=== PATIENT | male | born 1960 | race Caucasian/White ===

== ENCOUNTER → 2021-05-31 10:16 | Outpatient (CLI) | payer OTHER, SELFPAY | PROVIDERS: Referring Provider Orthopaedic Surgery; Visit Provider Orthopaedic Surgery | DX: Z01.818 Encounter for other preprocedural examination (principal) | CPT/HCPCS: 93005; 93010 ==

== ENCOUNTER → 2021-08-14 10:12 | Outpatient (CLI) | payer OTHER, SELFPAY ==
[2021-08-14 14:09] LABS: COVID19 -Nasal RAPID Negative (Negative)
== END ==
PROVIDERS: Visit Provider Family Medicine Sleep Medicine
DX: Z20.822 Contact with and (suspected) exposure to COVID-19 (principal)
CPT/HCPCS: 87635; C9803

== ENCOUNTER 2021-08-15 06:22 | Day surgery (SDC) | payer OTHER, SELFPAY ==
[2021-08-07 12:42] VITALS: BMI 23.6
[2021-08-15] VITALS (16 sets, daily range): BP systolic 95–143; BP diastolic 50–82; PULSE 63–773; RESP 11–19; TEMP 35.6–37.1; O2SAT 95–100; BMI 23.6
--- NOTE | 2021-08-15 | DI.RAD.S_ITS ---
PROCEDURE: [id number] W PEL IF PERFORMED INDICATIONS: ANTERIOR LEFT HIP TECHNIQUE: 4 intraoperative fluoroscopic images of left hip(s). COMPARISON: None. FINDINGS: Intraoperative fluoroscopic images shows left total hip arthroplasty in progress. Left hip alignment is near anatomic. IMPRESSION: Fluoro guidance was provided intraoperatively for left total hip arthroplasty. Dictated by: Alex Franco M.D. on 08/15/2021 at 11:40 Approved by: Alex Franco M.D. on 08/15/2021 at 11:44
--- NOTE | 2021-08-15 06:00 | DI.RAD.S_ITS ---
PROCEDURE: XR HIP W PEL IF DONE LT 2V INDICATIONS: TERRY, anterior TECHNIQUE: AP pelvis with lateral view(s) of the left hip(s). COMPARISON: [facility], MANDY, [id number] W PEL IF PERFORMED, 08/15/2021, 10:20. [facility] [place], CR, XR PELVIS WITH LATERAL HIP LEFT, 05/24/2021, 11:38. FINDINGS: Bones: Left hip arthroplasty is been placed with prosthetic components in expected positions. Soft tissues: The visualized bowel gas pattern is normal. No suspicious soft tissue calcifications. Prostate seed implant. IMPRESSION: Placement of left hip arthroplasty with hardware in expected position. Dictated by: Dylan Barrett [facility] Interpreted: Dorothy Clark MD on 08/15/2021 at 17:07 Transcribed by: DONA on 08/15/2021 at 17:08 Approved by: Dorothy Clark M.D. on 08/15/2021 at 19:23
[2021-08-15] MEDS: VANCOMYCIN 1,000 MG/200 ML PIGGYBACK 200 MG IV (06:55)
[2021-08-15] MEDS: CELECOXIB 200 MG CAPSULE PO (07:08)
[2021-08-15] MEDS: PREGABALIN 75 MG CAPSULE PO (07:09)
[2021-08-15] MEDS: ACETAMINOPHEN 325 MG TABLET 975 MG PO (07:09)
[2021-08-15] MEDS: LACTATED RINGERS 1,000 ML 84 ML IV (07:11)
--- NOTE | 2021-08-15 07:35 | PM.PREOP ---
Pre-operative Note COVID-19 COVID-19 status: Negative Interval Note History & Physical reviewed/Exam performed by Physician: Yes Changes to H&P: No
--- NOTE | 2021-08-15 07:40 | P.OP_ITS ---
Operative Date/Time/Diagnoses Date of procedure: 08/15/21 Time of procedure: 08:00 Pre-op diagnosis: left hip AVN Post-op diagnosis: same Procedure & Clinicians Procedure: Left total hip anterior approach Same procedure as scheduled: Yes Indications: The patient has had progressively worsening left hip pain with radiographic changes consistent with arthritis. Non-operative management has failed and the patient has requested total hip replacement. The risks, benefits and alternatives to surgery were discussed with the patient prior to proceeding. Risks discussed included, but were not limited to, failure to relieve pain, leg length discrepancy, dislocation, stiffness, infection, nerve damage, deep venous thrombosis, pulmonary embolism, stroke, coma, heart attack, permanent paralysis and , as well as the potential need for eventual revision of the prosthetic. Surgeon: Malu Andrew Heating Operators Engineer: Daniel Bridges Anesthesia Type: General and Spinal Operative Notes Findings: Severe left hip avascular necrosis, adequate stability in bone Closure Type: primary Specimen(s): none sent Prosthetic devices, grafts, tissues, transplants, or devices: Andrew and nephew anthology size 7, R3 56 mm cup, neutral poly liner, 36+ 0 Oxinium head, two 6.5 mm screws Estimated Blood Loss (mL): 250 Blood products transfused: none Procedure in detail: The patient was brought to the operating room. Patient was carefully positioned in the supine position. Time-out was performed and antibiotics were given. Anesthesia was induced. He was positioned in the on the table in order to allow hyperextension of the hip. The left lower extremity was prepped and draped in a standard sterile fashion. An anterior left hip incision was made 1 fingerbreadth lateral to the anterior superior iliac spine and extended distally towards the greater trochanter. Dissection was carried out through skin and subcutaneous tissues. The skin and subcutaneous tissues were carefully injected with Lidocaine with epi. Superficial hemostasis was achieved. The fascia over the tensor fascia oumou was defined and incised with a knife. Two Allis clamps were used to grasp the fascia. Tensor fascia oumou was retracted laterally. A gelpi retractor was placed. Dissection was carried out down along the neck. The circumflex vessels were carefully identified and cauterized with the Aqua Mantis. There was good visualization of the femoral neck. A Cobra was placed superior to the neck and the gluteus fibers were carefully stripped from that superior aspect of the capsule. A 2nd retractor was placed along the inferior aspect of the neck. The rectus insertion along the capsule was partially released. A 3rd retractor that was then gently placed over the rim of the acetabulum under the rectus. Capsule was carefully incised and released from the intertrochanteric line circumferentially superior to the mid sagittal line and inferiorly to the mid sagittal line until the lesser trochanter was palpable. A tag stitch was placed both in the superior and inferior limb of the capsular insertion. Along the acetabulum capsule was also released up to the mid sagittal 12:00 position. A portion of the labrum was resected. A saw was used to perform an osteotomy at the level of the intertrochanteric line and the junction of the superior femoral neck leaving approximately 1 finger breath of residual inferior neck above the lesser trochanter. A 2nd cut was made along the femoral neck at the base of the head and a napkin ring of neck was removed. Corkscrew was placed in the femoral head and the head was removed without difficulty. Retractors were then repositioned around the acetabulum. Residual labrum was resected and additional osteophytes were removed. A reamer that was 4 mm below the templated size was placed by hand in the acetabulum and it was reamed to centralize the acetabulum. It was then reamed up to 2 under the templated size and fluoroscopy was brought in to confirm the position of the reaming and depth of reaming. I reamed 1 under the anticipated size and touched the rim with line to line reaming. A trial cup was placed and noted that it was appropriately sized and fluoroscopy confirmed position and depth. The component was open and inserted without difficulty fluoroscopic imaging was used to confirm that the cup had been adequately seated and was well positioned. It was further stabilized with 2 screws. Neutral poly liner was placed. The cup was tested and noted to be stable. Attention was then directed to the femur. The femur was gently hyperextended additional capsular release was performed as needed in order to allow adequate visualization of the proximal femur with elevation of the femur. Patient was placed in a hyperextended slightly adducted position with maximum external rotation. Box osteotome was used to check for any residual neck as well as sclerotic bone along the trochanter. Arabi pepper was placed in the femur. Additional broaching was performed. Canal finder was used to determine the alignment of the canal and position. Size 1 broach was placed. The canal was then appropriately broached up to the templated size as long as there was adequate stability of the broach and serial advancement of the broach without excessive impingement. Specific attention was directed at avoiding varus attempting to direct the distal aspect of the broach more anteriorly and avoiding excessive anteversion. Trial reduction showed acceptable range of motion, good stability, no posterior impingement, advent of leg length and appropriate lateral shuck. I also hyperflexed the hip and checked that there was no impingement anteriorly and there was good stability with flexion, adduction and internal rotation. Marcaine and Exparel were injected. The stem was placed without difficulty. Repeat trial reduction and x-ray showed acceptable overall position, length, and no evidence of the femoral fracture. Final head was placed. Wound was meticulously irrigated with normal saline. The hip was reduced and additional Exparel and Marcaine were injected. The capsule was closed with interrupted nonabsorbable sutures. The fascia of the tensor was closed with interrupted and running Vicryl. No drain was placed. Any tensor fascia oumou muscle that appeared to be contused or injured which was a minimal amount was carefully resected. Capsule around the tensor was injected with Exparel and Marcaine. The skin was closed with barbed stitches for the subcutaneous tissue and skin. We also used surgical glue. The wound was dressed sterilely. Brief Betadine soak was also used and was meticulously irrigated with normal saline. Patient was transferred to recovery room in satisfactory condition. Complications: none Post-operative Condition: stable Disposition: Acute Care Plan for aftercare: The patient will be maintained on a standard total hip replacement protocol with weight bearing as tolerated and anterior hip precautions. The patient will receive Aspirin and sequential compression devices for DVT prophylaxis. The patient will be discharged home when safe for the home environment.
[2021-08-15] MEDS: CEFAZOLIN 2 GM/20 ML SYRINGE IV ×2 (08:05→16:59)
[2021-08-15] MEDS: TRANEXAMIC ACID 1,000 MG VIAL 2000 MG INJ ×2 (08:10→10:35)
--- NOTE | 2021-08-15 08:40 | SUR.OPER ---
Supine on padded [place] table with bilateral legs secured in padded positioning boots and suspended in positioning spars, operative leg in traction per surgeon. Head on one pillow. Arm on non-operative side secured on padded armboard <90 degrees abduction. Arm on operative side padded and resting across chest then secured with tape over sheet. Padded perineal post in place per surgeon.
[2021-08-15] MEDS: SODIUM CHLORIDE IRRIG SOLUTION 250 ML, POVIDONE-IODINE SPONGE STICKS 1 APPLIC IRR (08:46)
[2021-08-15] MEDS: BUPIVACAINE LIPOSOME 266 MG/20 ML VIAL INJ (08:46)
[2021-08-15] MEDS: BUPIVACAINE 0.25% (PF) 60 ML, EPINEPHrine 0.3 MG INJ (08:46)
[2021-08-15] MEDS: LACTATED RINGERS 1,000 ML 125 ML IV ×2 (13:41→20:52)
[2021-08-15] MEDS: IBUPROFEN 400 MG TABLET PO ×3 (13:41→20:46)
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
[2021-08-15] MEDS: ACETAMINOPHEN 325 MG TABLET 650 MG PO ×2 (16:57→20:46)
--- NOTE | 2021-08-15 17:20 | PC.NURSE ---
Pt arrived to unit from PACU at 1150, A&Ox4, no c/o pain. Dressing to L hip CDI, no numbness and tingling, CMS intact bilaterally. VSS on RA, IV to R forearm SL. Pt oriented to room and call light, will continue to monitor.
[2021-08-15] MEDS: ASPIRIN EC 81 MG TABLET PO (20:45)
[2021-08-15] MEDS: ATORVASTATIN 20 MG TABLET 10 MG PO (20:46)
[2021-08-16] MEDS: CEFAZOLIN 2 GM/20 ML SYRINGE IV (01:16)
[2021-08-16] MEDS: IBUPROFEN 400 MG TABLET PO ×3 (01:17→09:50)
[2021-08-16 05:04] VITALS: BP 113/57; PULSE 65; RESP 19; TEMP 36.9; O2SAT 95
[2021-08-16 05:06] LABS: Hematocrit 31.7 % (41-53); Hemoglobin 10.7 g/dL (13.5-17.5)
[2021-08-16 07:00] VITALS: BP 111/61; PULSE 69; RESP 19; TEMP 36.6; O2SAT 97
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
--- NOTE | 2021-08-16 09:25 | PT-IP ANOTE ---
Attempted to see pt at 9:25, pt states no further needs and feels confident to go home this AM and continue outpatient therapy.
[2021-08-16] MEDS: DOCUSATE 100 MG CAPSULE PO (09:50)
[2021-08-16] MEDS: ASPIRIN EC 81 MG TABLET PO (09:50)
[2021-08-16] MEDS: ACETAMINOPHEN 325 MG TABLET 650 MG PO (09:50)
[2021-08-16] MEDS: OXYCODONE IR 5 MG TABLET PO (09:50)
--- NOTE | 2021-08-16 10:28 | PC.NURSE ---
I changed the patient's aquacel dressing because it was starting to peel off.
== END 2021-08-16 10:51 | disposition home or self-care (01) ==
LOC: OR 06:23 → AC 06:24
PROVIDERS: Referring Provider Orthopaedic Surgery; Visit Provider Orthopaedic Surgery
PROC: (CPT 27130; principal; 2021-08-15 07:45)
DX: M87.052 Idiopathic aseptic necrosis of left femur (principal); I10 Essential (primary) hypertension; E78.5 Hyperlipidemia, unspecified
CPT/HCPCS: 27130; 36415; 73502; 73503; 76000; 85014; 85018; 97116; 97161; 97530; C1776; C9290; J0171; J0690; J1100; J2250; J2274; J2405; J2704; J3010

== ENCOUNTER → 2023-08-30 10:21 | Outpatient (CLI) | payer OTHER, SELFPAY ==
[2021-08-15 12:02] VITALS: BMI 23.6
[2023-08-30 11:14] LABS: Appearance Urine UA CLEAR; Bilirubin Urine UA NEGATIVE (NEGATIVE); Color Urine UA YELLOW; Glucose Urine UA NEGATIVE (Negative); Ketones Urine UA NEGATIVE (NEGATIVE); Leukocyte Esterase Urine UA NEGATIVE (NEGATIVE); Nitrite Urine UA NEGATIVE (Negative); Occult Blood Urine UA NEGATIVE (Negative); Protein Urine UA TRACE (Negative); Specific Gravity Urine UA 1.015 (1.000-1.035); Urobilinogen Urine UA 0.2 E.U./dL (0.2)
[2023-08-30 11:19] LABS: Add Manual Diff / Slide Review NO; Basophils Absolute Auto 100 /uL (0-100); Basophils Percent Auto 0.8 % (0-2); Eosinophils Absolute Auto 300 /uL (0-450); Eosinophils Percent Auto 3.8 % (2-4); Hemoglobin 13.8 g/dL (13.5-17.5); Lymphocytes Absolute Auto 1300 /uL (1100-4500); Lymphocytes Percent Auto 15.4 % (25-40); Mean Corpuscular HGB Conc 33.7 % (30-36); Mean Corpuscular Hemoglobin 31.1 PG (26-34); Mean Corpuscular Volume 92.4 fL (80-100); Monocytes Absolute Auto 700 /uL (0-900); Monocytes Percent Auto 8.1 % (3-14); Neutrophils Absolute Auto 6200 /uL (1500-7000); Neutrophils Percent Auto 71.9 % (50-75); Platelet Count 319 X10^3/uL (150-400); Red Blood Cell Count 4.44 X10^6/uL (4.5-5.9); White Blood Cell Count 8.6 X10^3/uL (4.5-11.0)
[2023-08-30 11:23] LABS: Hemoglobin A1C% w Est Avg Glu 5.4 % (4.0-6.0)
[2023-08-30 11:29] LABS: Bacteria Urine None Seen; Culture Indicated Urine Cult Not Indicated; RBC Urine None Seen (0-5/HPF); Squamous Epithelial Cell Urine None Seen (0-5/HPF); Urine Volume 10mL (spun); WBC Urine None Seen (0-5/HPF)
[2023-08-30 11:30] LABS: BUN Creatinine Ratio 22.6 (6-22); Blood Urea Nitrogen 14 mg/dL (9-20); Calcium 9.4 mg/dL (8.4-10.2); Carbon Dioxide 24 mmol/L (22-32); Chloride 107 mmol/L (98-107); Estimated Glomerular Filt Rate > 60 mL/min (>60); Glucose 94 mg/dL (80-110); HEMOLYSIS < 15 (0-50); Potassium 4.2 mmol/L (3.4-5.1); Sodium 137 mmol/L (137-145)
== END ==
LOC: RESP 10:23
PROVIDERS: Referring Provider Orthopaedic Surgery; Visit Provider Orthopaedic Surgery
DX: Z01.818 Encounter for other preprocedural examination (principal); Z01.812 Encounter for preprocedural laboratory examination; R73.9 Hyperglycemia, unspecified; N39.0 Urinary tract infection, site not specified
CPT/HCPCS: 36415; 80048; 81001; 83036; 85025; 93005

== ENCOUNTER 2023-10-22 08:29 | Day surgery (SDC) | payer OTHER, SELFPAY ==
[2021-08-15 12:02] VITALS: BMI 23.6
[2023-10-15 09:52] VITALS: BMI 23.6
[2023-10-22] VITALS (11 sets, daily range): BP systolic 104–166; BP diastolic 57–80; PULSE 59–70; RESP 11–18; TEMP 35.9–36.8; O2SAT 94–100; BMI 22.3
--- NOTE | 2023-10-22 | DI.RAD.S_ITS ---
PROCEDURE: XR HIP W PEL IF DONE RT 4V INDICATIONS: ANT RIGHT HIP TECHNIQUE: AP pelvis with lateral view(s) of the right hip(s). COMPARISON: [facility], [place], XR HIP W PEL IF DONE LT 2V, 08/15/2021, 11:08. FINDINGS: Right hip arthroplasty projects in the expected location. Prior left hip arthroplasty. Prostate brachytherapy seeds. IMPRESSION: Intraoperative guidance provided. Dictated by: Owen Hope M.D. on 10/22/2023 at 17:07 Approved by: Owen Hope M.D. on 10/22/2023 at 17:08
--- NOTE | 2023-10-22 06:47 | DI.RAD.S_ITS ---
PROCEDURE: XR HIP W PEL IF DONE RT 2V INDICATIONS: total right hip TECHNIQUE: AP pelvis and lateral view of the hip acquired. COMPARISON: [facility], [place], XR HIP W PEL IF DONE RT 4V, 10/22/2023, 12:56. FINDINGS: Bones: Patient is status post right hip arthroplasty, with hardware components in expected positions. The hip joint appears congruent. The visualized bony structures appear intact. Grossly stable left hip arthroplasty. Soft tissues: Overlying postoperative changes are noted. No suspicious soft tissue densities. Prostate brachytherapy seeds. IMPRESSION: Expected post-operative appearance of the right hip arthroplasty. Dictated by: Owen Hope M.D. on 10/22/2023 at 16:53 Approved by: Owen Hope M.D. on 10/22/2023 at 16:54
[2023-10-22] MEDS: CELECOXIB 200 MG CAPSULE PO (09:35)
[2023-10-22] MEDS: LACTATED RINGERS 1,000 ML 42 ML IV (09:35)
[2023-10-22] MEDS: VANCOMYCIN 1,000 MG/200 ML PIGGYBACK 200 MG IV (09:59)
--- NOTE | 2023-10-22 10:27 | PM.PREOP ---
Pre-operative Note Interval Note History & Physical reviewed/Exam performed by Physician: Yes Changes to H&P: No
--- NOTE | 2023-10-22 10:33 | P.OP_ITS ---
Operative Date/Time/Diagnoses Date of procedure: 10/22/23 Time of procedure: 11:20 Pre-op diagnosis: Severe right hip AVN Post-op diagnosis: same Procedure & Clinicians Procedure: Right total hip arthroplasty anterior approach Same procedure as scheduled: Yes Indications: The patient has had progressively worsening right hip pain with radiographic changes consistent with avascular necrosis and secondary arthritis. Non- operative management has failed and the patient has requested total hip replacement. The risks, benefits and alternatives to surgery were discussed with the patient prior to proceeding. Risks discussed included, but were not limited to, failure to relieve pain, leg length discrepancy, dislocation, stiffness, infection, nerve damage, deep venous thrombosis, pulmonary embolism, stroke, coma, heart attack, permanent paralysis and , as well as the potential need for eventual revision of the prosthetic. Surgeon: Malu Andrew Lip And Gate Builder: Daniel Bridges Anesthesia Type: General and Spinal Operative Notes Findings: Severe right hip AVN, hard bone, adequate stability Closure Type: primary Specimen(s): none sent Prosthetic devices, grafts, tissues, transplants, or devices: Andrew and nephew R3 56, neutral poly liner,one 6.5 mm screw, anthology standard offset size 7, 36 x -3 Oxinium head Estimated Blood Loss (mL): 250 Blood products transfused: none Procedure in detail: The patient was brought to the operating room. Patient was carefully positioned in the supine position. Time-out was performed and antibiotics were given. Anesthesia was induced. He was positioned in the on the table in order to allow hyperextension of the hip. The right lower extremity was prepped and draped in a standard sterile fashion. An anterior right hip incision was made 1 fingerbreadth lateral to the anterior superior iliac spine and extended distally towards the greater trochanter. Dissection was carried out through skin and subcutaneous tissues. Superficial hemostasis was achieved. The fascia over the tensor fascia oumou was defined and incised with a knife. Two Allis clamps were used to grasp the fascia. Tensor fascia oumou was retracted laterally. A gelpi retractor was placed. Dissection was carried out down along the neck. The circumflex vessels were carefully identified and cauterized with the Aqua Mantis. A PA was used during the procedure and was essential for intraoperative retraction and safe implantation of the components. There was good visualization of the femoral neck. A Cobra was placed superior to the neck and the gluteus fibers were carefully stripped from that superior aspect of the capsule. A 2nd retractor was placed along the inferior aspect of the neck. The rectus insertion along the capsule was partially released. A 3rd retractor that was then gently placed over the rim of the acetabulum under the rectus. Capsule was carefully incised and released from the intertrochanteric line circumferentially superior to the mid sagittal line and inferiorly to the mid sagittal line until the lesser trochanter was palpable. A tag stitch was placed both in the superior and inferior limb of the capsular insertion. Along the acetabulum capsule was also released up to the mid sagittal 12:00 position. A portion of the labrum was resected. A saw was used to perform an osteotomy at the level of the intertrochanteric line and the junction of the superior femoral neck leaving approximately 1 finger breath of residual inferior neck above the lesser trochanter. A 2nd cut was made along the femoral neck at the base of the head and a napkin ring of neck was removed. Corkscrew was placed in the femoral head and the head was removed without difficulty. Retractors were then repositioned around the acetabulum. Residual labrum was resected and additional osteophytes were removed. A reamer that was 4 mm below the templated size was placed by hand in the acetabulum and it was reamed to centralize the acetabulum. It was then reamed up to 2 under the templated size and fluoroscopy was brought in to confirm the position of the reaming and depth of reaming. I reamed 1 under the anticipated size. A trial cup was placed and noted that it was appropriately sized and fluoroscopy confirmed position and depth. The component was open and inserted without difficulty fluoroscopic imaging was used to confirm that the cup had been adequately seated and was well positioned. It was further stabilized with a 6.5 mm screw. Neutral poly liner was placed. The cup was tested and noted to be stable. Attention was then directed to the femur. The femur was gently hyperextended additional capsular release was performed as needed in order to allow adequate visualization of the proximal femur with elevation of the femur. Patient was placed in a hyperextended slightly adducted position with maximum external rotation. Box osteotome was used to check for any residual neck as well as sclerotic bone along the trochanter. Munising pepper was placed in the femur. Additional broaching was performed. Canal finder was used to determine the alignment of the canal and position. Size 1 broach was placed. The canal was then appropriately broached up to the templated size as long as there was adequate stability of the broach and serial advancement of the broach without excessive impingement. Specific attention was directed at avoiding varus attempting to direct the distal aspect of the broach more anteriorly and avoiding excessive anteversion. Trial reduction showed acceptable range of motion, good stability, no posterior impingement, religious of leg length and appropriate lateral shuck. I also hyperflexed the hip and checked that there was no impingement anteriorly and there was good stability with flexion, adduction and internal rotation. Marcaine and Exparel were injected. The stem was placed without difficulty. Repeat trial reduction and x-ray showed acceptable overall position, length, and no evidence of the femoral fracture. Final head was placed. Wound was meticulously irrigated with normal saline. The hip was reduced and additional Exparel and Marcaine were injected. The capsule was closed with interrupted nonabsorbable sutures. The fascia of the tensor was closed with interrupted and running Vicryl. No drain was placed. Any tensor fascia oumou muscle that appeared to be contused or injured which was a minimal amount was carefully resected. Capsule around the tensor was injected with Exparel and Marcaine. The skin was closed with barbed stitches for the subcutaneous tissue and skin. We also used surgical glue. The wound was dressed sterilely. Brief Betadine soak was also used and was meticulously irrigated with normal saline. Patient was transferred to recovery room in satisfactory condition. Complications: none Post-operative Condition: stable Disposition: same day surgery Plan for aftercare: The patient will be maintained on a standard total hip replacement protocol with weight bearing as tolerated and anterior hip precautions. The patient will receive Aspirin and sequential compression devices for DVT prophylaxis. The patient will be discharged home when safe for the home environment.
[2023-10-22] MEDS: CEFAZOLIN 2 GM/100 ML PREMIX 100 ML IV ×2 (11:55→20:32)
[2023-10-22] MEDS: TRANEXAMIC ACID 1,000 MG VIAL 1000 MG INJ ×2 (12:01→14:01)
--- NOTE | 2023-10-22 12:18 | SUR.OPER ---
Patient supine on padded Grant table, one arm on padded arm board at <90, other arm padded and secured with tape across patient's chest, both legs secured in padded traction boots and positioned per surgeon, padded post at patient's groin, pressure points checked and padded.
[2023-10-22] MEDS: BUPIVACAINE LIPOSOME 266 MG/20 ML VIAL INJ (12:21)
[2023-10-22] MEDS: BUPIVACAINE 0.25% (PF) 60 ML, EPINEPHrine 0.3 MG INJ (12:22)
[2023-10-22] MEDS: ACETAMINOPHEN IV 1,000 MG/100 ML VIAL 400 MG IV (12:25)
[2023-10-22] MEDS: LACTATED RINGERS 1,000 ML 100 ML IV (15:30)
[2023-10-22] MEDS: ACETAMINOPHEN 325 MG TABLET 650 MG PO ×2 (15:36→23:40)
[2023-10-22] MEDS: OXYCODONE IR 5 MG TABLET PO (15:37)
[2023-10-22] MEDS: IBUPROFEN 400 MG TABLET PO (17:21)
[2023-10-22] MEDS: OXYCODONE IR 5 MG TABLET 10 MG PO ×3 (17:21→23:39)
[2023-10-22] MEDS: ASPIRIN EC 81 MG TABLET PO (20:31)
[2023-10-22] MEDS: ATORVASTATIN 20 MG TABLET 10 MG PO (20:31)
[2023-10-22] MEDS: DOCUSATE 100 MG CAPSULE PO (20:31)
[2023-10-23 01:58] VITALS: BP 162/70; PULSE 67; RESP 16; TEMP 36.6; O2SAT 97
[2023-10-23] MEDS: CEFAZOLIN 2 GM/100 ML PREMIX 100 ML IV (04:10)
[2023-10-23] MEDS: OXYCODONE IR 5 MG TABLET 10 MG PO ×3 (04:13→11:36)
[2023-10-23 05:37] LABS: Hematocrit 34.1 % (41-53); Hemoglobin 11.7 g/dL (13.5-17.5)
[2023-10-23] MEDS: ACETAMINOPHEN 325 MG TABLET 650 MG PO (08:05)
[2023-10-23] MEDS: ASPIRIN EC 81 MG TABLET PO (08:05)
[2023-10-23] MEDS: DOCUSATE 100 MG CAPSULE PO (08:06)
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
[2023-10-23] MEDS: atenoloL 50 MG TABLET PO (08:12)
[2023-10-23 09:05] VITALS: BP 166/73; PULSE 76; RESP 16; TEMP 36.6; O2SAT 96
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
[2023-10-23] MEDS: FENOFIBRATE, MICRONIZED 67 MG CAPSULE 134 MG PO (09:29)
[2023-10-23] MEDS: CYCLOBENZAPRINE 10 MG TABLET PO (09:29)
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
--- NOTE | 2023-10-23 13:12 | CM.DANOTE ---
Brief DCP Assessment Note Pt is a 63yo M here following planned right hip surgery with Dr. Andrew on 10.22.23. PCP Jostin Siegel Payer Jackie and self pay MANAGER RESPIRATORY reviewed EMR. Per chart review, pt lives alone in [place] but plans to have brother Yuniel come stay with him throughout recovery. Per RN report, pt works at [place] [employer] [place] and is excited about being one year away from retiring. PT/OT cleared him for home with assistance. Pt is indep/active/drives at baseline. P: dc today home with brother support. No identified barriers to safe dc home. CM team will continue to follow as needed. JULIAN Jerome Discharge Planning/Care Management CM Discharge Assessment Start: 10/23/23 13:10 Freq: Status: Active Protocol: Document 10/23/23 13:11 [facility] (Rec: 10/23/23 13:12 [id number]) Discharge Planning Assessment Assigned Technical Testing Engineer JULIAN Coyne DPOA/Assigned Designee Name brother Brice Contact Information [phone] Advance Directives? Yes Advance Directives on File No History Provided By Patient Prior Living Arrangements House Household Members none Type of transporation used prior to Drives own vehicle admit Independent with ADL's Yes Is patient alert and oriented? Yes DME Already Rented / Owned FWW / Walker,Cane Barriers to Discharge No Discharge Plan Home Transportation Arrangement brother in [place] Referrals Initiated None needed Whiteboard Updated in Patient Room with No name and ext. # of Technical Testing Engineer Review Status In Process Please Provide Date Initial DC 10/23/23 Assessment Was Performed Next Review Type Continued Stay Review Pre-Anesthesia Assessment Start: 10/15/23 09:52 Freq: Status: Active Protocol: Document 10/15/23 09:52 [facility] (Rec: 10/15/23 10:16 [facility] [id number]) Pre-Anesthesia Assessment Preferred Name Baldomero Patient Information Reviewed Via Phone Assessment Assessment Completed With Patient Diagnostic Results BMP/CMP,CBC,EKG Primary Care Provider Jostin Siegel Comment Clearance form 08/23/23 scanned Seen Specialist in Last 12 Months Yes Specialist Seen Orthopedist Primary Language Emirati Preferred Language Emirati Dot Compliance Manager Required No Height 175.26 cm Weight 72.575 kg Body Mass Index (BMI) 23.6 Hearing Ability Normal Visual Impairment No Limitations Visual Assist None Dentition Type Teeth, Natural Present Barriers to Learning None Hx Anesthesia Reactions No Hx Family Anesthesia Reaction No Hx Malignant Hyperthermia No Hx Blood Transfusions No Anesthesia Review Requested No Level Glass Forming Machine Operator No alcohol intake current alcohol intake frequency a few times a week Smoking Status Current some day smoker Tobacco type cigarettes Substance Use Type marijuana Comment Pt advised not to smoke marijuana 24 hours prior Pain Present Pain Reported Musculoskeletal Symptoms Abnormal Gait,Difficulty Walking,Joint Pain History of Falling (Recent or History of No ) Patient is completely paralyzed or No completely immobile Mental Status Oriented to own ability Is patient on oxygen? No Does patient have OBRIEN/SOB No Hx Sleep Apnea No CPAP/BIPAP use not prescribed Currently Taking a Beta Maria Isabel Yes: Atenolol Can You Climb a Flight of Stairs Without Yes SOB Hx Chest Pain No Hx SOB No Hx Syncope or Dizziness No Anti-Coagulant Therapy No Has a Chief Business Officer No Cardiac Testing No Hx Pacemaker/ICD No Pacemaker Rep Required? No Cardiac Clearance Received No Diet Type At Home Regular Dysphagia No Gastrointestinal Symptoms None Urinary Catheter Present No Hx Urinary Self Catheterization No Diabetes No HgbA1C 5.4 Date 08/30/23 Hx Drug Resistant Organism No Presence of External or Internal Medical Yes: Left hip prosthesis Devices Received a COVID vaccine? Yes Marital Status Single Lives With none Current Living Arrangements House Number of Floors (Floors) One Floor Support System Sibling(s) Comment Brother will stay w/pt to assist with care at [place] Does the Patient Have Assistance After Yes Surgery Patient Discharge Plan Description Return Home Comment Pt advised overnight length of stay per surgeon Feels Safe in Current Environment Yes Been Physically Hurt or Threatened By a No Person in Current Environment Do you have thoughts of harming yourself None or others? Are you currently considering suicide? No Do you have a plan to hurt yourself or No Plan others? Do You Have Any Spiritual Beliefs That No May Affect Your HC Choices? Do You Have Any Cultural Practices That No May Affect Your HC Choices? Comment Rastafarian Who Can We Speak to About Patient's Care Family, friends Identifying Code for Release of Patient Declines to issue Information Health Care Proxy/Next of Kin Yuniel (brother) Health Care Proxy Emergency Contact Name Yuniel (brother) Emergency Contact Advance Directives? No Power of Laborer Steel Handling No PAC Instructions Durable medical equipment, Medications to take/avoid, Nasal antibiotic,No ETOH/ petroleum product on skin DOS, NPO,Pre-op antibiotic,Pre- surgical wash,Sensory aids, Sturdy shoes/comfortable clothes,Do not bring valuables and remove jewelry
--- NOTE | 2023-10-23 13:21 | PC.NURSE ---
Patient is A&Ox4, VSS, afebrile on RA. Slightly hypertensive this a.m. and administered his scheduled BP medications and prn oxycodone 10 mg for 10/29 pain. He reports pain is tolerable on reassessment at 08/29. Aquacel dressing to R hip is C/D/I. He is able to ambulate using FWW to BR. PT at bedside clearing patient for discharge today. PA evaluates patient and clears him for discharge home. He verbalizes understanding of activity limitations, site care, s/sx of infection, medications and follow up appointment with MD Andrew on 11/01/23. He is escorted via w/ch to private vehicle with friends and all of his belongings including FWW at 1308 for discharge home today.
== END 2023-10-23 13:08 | disposition home or self-care (01) ==
LOC: OR 08:31 → AC 08:31
PROVIDERS: PCP Internal Medicine; Referring Provider Orthopaedic Surgery; Visit Provider Orthopaedic Surgery
PROC: (CPT 27130; principal; 2023-10-22 10:45)
DX: M16.11 Unilateral primary osteoarthritis, right hip (principal); M87.051 Idiopathic aseptic necrosis of right femur; M25.751 Osteophyte, right hip
CPT/HCPCS: 27130; 73502; 73503; 76000; 85014; 85018; 97116; 97161; 97165; 97530; 97535; C1776; C9290; J0136; J0171; J0690; J1170; J2250; J2704; J3010